=== PATIENT | male | born 1950 | race Caucasian/White ===

== ENCOUNTER 2019-03-13 01:09 | Emergency (ER) | payer MEDICARE ==
[2019-03-13] MEDS ORDERED: PROPOFOL 20 ML ONE (02:17)
[2019-03-13] MEDS ORDERED: Ondansetron PF 4 MG/2 ML Vial ONE (02:17)
[2019-03-13] MEDS ORDERED: Fentanyl 100 MCG/2 ML VIAL ONE ×4 (02:17→04:46)
[2019-03-13] MEDS ORDERED: PROPOFOL 40 ML ONE (04:44)
[2019-03-13] MEDS ORDERED: Midazolam HCl 5 mg/ml Vial ONE (04:46)
--- NOTE | 2019-03-13 05:58 | OP ---
DATE OF PROCEDURE: 03/13/2019 PREOPERATIVE DIAGNOSIS: Right total hip arthroplasty, posterior dislocation, recurrent. POSTOPERATIVE DIAGNOSIS: Right total hip arthroplasty, posterior dislocation, recurrent. PROCEDURE: Closed reduction of right total hip arthroplasty dislocation, posterior. ANESTHESIA: IV sedation with propofol. BLOOD LOSS: Zero. COMPLICATIONS: None. DRAINS: None. SPECIMEN: None. OUTCOME: Successful closed reduction of total hip arthroplasty, confirmed with x-ray. INDICATIONS: The patient is a 69-year-old gentleman who is status post right total hip arthroplasty with Dr. Jose Muniz in 2011. In 2015, the patient sustained a posterior hip dislocation that was treated with closed reduction. The patient was then remained stable and doing well until early this morning when he rolled over in bed and sustained an another posterior hip dislocation. An attempt was made at closed reduction by the emergency room physician; however, this proved to be unsuccessful. As such, Orthopedic consultation requested. Upon evaluation, he was found to have an obvious posterior hip dislocation with the leg shortened and held in internal rotation. Today, I discussed with the patient risks and benefits of a closed reduction. Due to the unavailability of operating room time, we decided to proceed with IV sedation with anesthesia in the emergency room and an attempt at reduction. Informed consent has been obtained. DESCRIPTION OF PROCEDURE: After the induction of IV sedation with propofol, the patient was positioned supine and then longitudinal traction was applied with the hip at 90 degrees of flexion with gentle longitudinal traction. The leg was brought out to full extension and a subtle clunk could be felt as it reduced. When the leg was then brought into full extension, there was found to be religious of leg lengths in the leg that fell into normal external rotation at the hip while lying supine. A single AP pelvis x-ray was then obtained that showed concentric reduction of this hip. PLAN: Today, I discussed with the patient and his that I would like him to follow up with Dr. Jose Muniz this week to inform him of the 2nd dislocation. He needs to avoid positions that place him at risk for redislocation such as internal rotation of the hip or adduction. They appear comfortable with this plan. He will be discharged home from the emergency room Job ID: [id number]
--- NOTE | 2019-03-13 09:00 | RAD ---
SINGLE VIEW RIGHT HIP: Date: 03/13/19 COMPARISON: 01/30/12 and 02/25/16. HISTORY: Prior history of hip dislocations. Right hip deformity. FINDINGS: Single view of the right hip shows dislocation of the right hip prosthesis. No fracture is seen. IMPRESSION: Dislocation of right hip prosthesis. POS: CET
--- NOTE | 2019-03-13 09:00 | RAD ---
SINGLE VIEW RIGHT HIP: Date: 03/13/19 COMPARISON: 03/13/19 at 0122 hours. HISTORY: Dislocated hip prosthesis. FINDINGS: Single view of the right hip shows persistent dislocation of the right hip prosthesis. IMPRESSION: Persistent right hip prosthesis dislocation. POS: CET
--- NOTE | 2019-03-13 09:01 | RAD ---
SINGLE VIEW RIGHT HIP: Date: 03/13/19 COMPARISON: 03/13/19 at 0243 hours. HISTORY: Dislocated hip prosthesis. FINDINGS: Single view of the right hip shows reduction of the previously seen dislocated right hip prosthesis. No fracture is seen. IMPRESSION: Reduction of prosthetic dislocation. POS: CET
== END 2019-03-13 06:27 | disposition home or self-care (01) ==
LOC: ERS 01:09
DX: S73.014A Posterior dislocation of right hip, initial encounter (principal); E78.5 Hyperlipidemia, unspecified; I10 Essential (primary) hypertension; I25.2 Old myocardial infarction; Z87.891 Personal history of nicotine dependence; Z79.82 Long term (current) use of aspirin; Z79.899 Other long term (current) drug therapy; X50.9XXA Other and unspecified overexertion or strenuous movements or postures, initial encounter
CPT/HCPCS: 94760; 96361; 96374; 96375; 96376; 99152; 99153; J2250; J2405; J2704; J3010

== ENCOUNTER 2019-08-12 10:17 | Emergency (ER) | payer MEDICARE ==
[2019-08-12 11:14] LABS: #Neutrophils 10.2 thou/uL (1.40-6.50); %Basophils 0.3 % (0.0-1.0); %Eosinophils 0.2 % (0.0-10.0); %Monocytes 8.1 % (0.0-10.0); %Neutrophils 83.4 % (42.0-75.0); Hemoglobin 14.7 g/dL (14.0-18.0); Mean Corpuscular HGB CONC 34.7 g/dL (32.0-36.0); Mean Corpuscular Hemoglobin 32.7 pg (27.0-31.0); Mean Corpuscular Volume 94.1 fL (78.0-98.0); Mean Platelet Volume 8.2 fL (7.4-10.4); Platelet Count 270 thou/uL (130-400); White Blood Cell (WBC) Count 12.2 thou/uL (4.8-10.8)
[2019-08-12 11:37] LABS: ALT (SGPT) 33 U/L (8-55); AST (SGOT) 22 U/L (5-34); Albumin 4.4 g/dL (3.4-4.8); Alkaline Phosphatase 85 U/L (40-110); Anion Gap 16 mmol/L (10-20); BUN (Urea Nitrogen) 17 mg/dL (8.4-25.7); Bilirubin, Total 2.1 mg/dL (0.2-1.2); Calc. Creatinine Clearance 0 mL/min (70-130); Calcium 9.5 mg/dL (7.8-10.44); Carbon Dioxide 25 mmol/L (23-31); Chloride 98 mmol/L (98-107); Estimated GFR-MDRD 76; Globulin 3.1 g/dL (2.4-3.5); Glucose 153 mg/dL (80-115); Lipase 14 U/L (8-78); Potassium 3.6 mmol/L (3.5-5.1); Protein, Total 7.5 g/dL (5.8-8.1); Sodium 135 mmol/L (136-145)
[2019-08-12] MEDS ORDERED: Ondansetron PF 4 MG/2 ML Vial ONE ×2 (12:00→12:52)
[2019-08-12] MEDS ORDERED: Morphine 4 MG/ML VIAL ONE (12:52)
--- NOTE | 2019-08-12 13:02 | CT ---
CT ABDOMEN AND PELVIS WITH IV CONTRAST 08/12/2019 CLINICAL INFORMATION: Nausea, vomiting, and diarrhea. Patient also reports abdominal cramping. COMPARISON: 02/05/2012 Technique: Multiple contiguous axial CT images are obtained through the abdomen and pelvis with IV contrast. Cor onal reformatted images are provided. FINDINGS: Lower Chest: Small hiatal hernia is visualized. Lung bases are clear. Vessels: Vascular calcifications are seen in the abdominal aorta and involving the iliac arteries. Abdomen: Portal vein:Patent Gallbladder: Within normal limits for CT imaging. Liver: within normal limits. Spleen: within normal limits. Pancreas: Approximately 12 mm low-density lesion is seen in the pancreatic head, but this is stable c ompared to prior study in 2012. Adrenals: within normal limits. Kidneys: Subcentimeter too small to characterize hypodense lesion midportion left kidney. Kidneys oth erwise have a normal CT appearance. The right kidney is rotated. Bowel: Small bowel is fluid-filled but normal in caliber. Appendix: Not visualized, no secondary signs to suggest appendicitis are seen. Peritoneum: No ascites or free air; no fluid collection. Mesentery and Retroperitoneum: No enlarged mesenteric or retroperitoneal lymph nodes. Abdominal Wall: Small fat-containing umbilical hernia is again seen. Pelvis: Reproductive Organs: No pelvic masses. Pelvis within normal limits. Bladder: Partially obscured due to streak artifact but otherwise grossly normal in appearance. Bones: Right total hip prosthesis is noted. Degenerative changes are seen in the spine which have pro gressed when compared to prior study. IMPRESSION: 1. No acute findings are seen in the abdomen or pelvis. 2. Stable subcentimeter hypodense lesion pancreatic head unchanged compared to study in 2012. 3. Fluid-filled loops of small bowel which are not dilated. This is overall nonspecific. Enteritis ca nnot be excluded based on this exam. 4. Small hiatal hernia.
[2019-08-12 13:39] LABS: Bacteria/HPF None Seen HPF (None Seen); Bilirubin Negative (Negative); Blood, Urine Negative (Negative); Clarity Clear (Clear); Glucose, Urine (Dipstick) Normal (Negative); Leukocyte Negative Leu/uL (Negative); Nitrite Negative (Negative); Protein, Urine (Dipstick) 50 mg/dL (Neg-Trace); Squamous Epithelial None Seen HPF (0-3); Urobilinogen Normal mg/dL (Less than 2); WBC/HPF 0-3 HPF (0-3)
== END 2019-08-12 13:50 | disposition home or self-care (01) ==
LOC: ERS 10:17
DX: K52.9 Noninfective gastroenteritis and colitis, unspecified (principal); E78.5 Hyperlipidemia, unspecified; I10 Essential (primary) hypertension; I25.2 Old myocardial infarction; Z95.5 Presence of coronary angioplasty implant and graft; Z87.891 Personal history of nicotine dependence; Z79.82 Long term (current) use of aspirin; Z79.899 Other long term (current) drug therapy
CPT/HCPCS: 36415; 74177; 80053; 81003; 81015; 83690; 84484; 85025; 93005; 96361; 96372; 96374; 96376; J0500; J2270; J2405

== ENCOUNTER 2019-08-28 10:13 | Outpatient (CLI) | payer MEDICARE, OTHER ==
--- NOTE | 2019-08-28 11:33 | RAD ---
XR Barium Swallow Esophagus HISTORY: Dysphagia COMPARISON: None. FINDINGS: Swallowing was grossly normal. There is unobstructed flow of contrast through the esophagus into the stomach. No ulcer, stricture, mass or diverticulum is seen. A small hiatal hernia is noted. Incidental note is made of a small diverticulum arising from the second portion of the duodenu m. IMPRESSION: 1. Small hiatal hernia 2. Small duodenal diverticulum.
== END 2019-08-28 10:14 | disposition home or self-care (01) ==
LOC: RAD 10:13
PROVIDERS: ATTEND Family Medicine
DX: R13.10 Dysphagia, unspecified (principal); K44.9 Diaphragmatic hernia without obstruction or gangrene; K57.10 Diverticulosis of small intestine without perforation or abscess without bleeding
CPT/HCPCS: 74220

== ENCOUNTER 2021-02-18 09:58 | Emergency (ER) | payer MEDICARE, OTHER ==
[2021-02-18] MEDS ORDERED: Ondansetron PF 4 MG/2 ML Vial ONE (10:41)
[2021-02-18 10:47] LABS: #Eosinphils 0.2 thou/uL (0.0-0.7); #Lymphocytes 1.1 thou/uL (1.20-3.40); #Monocytes 0.9 thou/uL (0.11-0.59); #Neutrophils 3.6 thou/uL (1.40-6.50); %Basophils 0.7 % (0.0-1.0); %Eosinophils 4.1 % (0.0-10.0); %Lymphocytes 18.7 % (21.0-51.0); %Monocytes 14.6 % (0.0-10.0); %Neutrophils 61.9 % (42.0-75.0); Mean Corpuscular HGB CONC 33.8 g/dL (32.0-36.0); Mean Corpuscular Hemoglobin 32.4 pg (27.0-31.0); Mean Platelet Volume 7.9 fL (7.4-10.4); Platelet Count 268 thou/uL (130-400); RBC Distribution Width 11.9 % (11.5-14.5); Red Blood Cell (RBC) Count 4.63 mill/uL (4.70-6.10); White Blood Cell (WBC) Count 5.8 thou/uL (4.8-10.8)
[2021-02-18 11:07] LABS: ALT (SGPT) 22 U/L (8-55); AST (SGOT) 14 U/L (5-34); Albumin 4.3 g/dL (3.4-4.8); Alkaline Phosphatase 78 U/L (40-110); Anion Gap 20 mmol/L (10-20); BUN (Urea Nitrogen) 17 mg/dL (8.4-25.7); Bilirubin, Total 1.6 mg/dL (0.2-1.2); CK (CPK) 46 U/L (30-200); Calc. Creatinine Clearance 0 mL/min (70-130); Calcium 9.3 mg/dL (7.8-10.44); Carbon Dioxide 14 mmol/L (23-31); Chloride 105 mmol/L (98-107); Globulin 3.2 g/dL (2.4-3.5); Glucose 114 mg/dL (83-110); Lipase 42 U/L (8-78); Potassium 3.8 mmol/L (3.5-5.1); Protein, Total 7.5 g/dL (5.8-8.1); Sodium 135 mmol/L (136-145)
== END 2021-02-18 12:15 | disposition home or self-care (01) ==
LOC: ERS 09:58
DX: E86.0 Dehydration (principal); R11.2 Nausea with vomiting, unspecified; R19.7 Diarrhea, unspecified; I10 Essential (primary) hypertension; I25.2 Old myocardial infarction; E78.5 Hyperlipidemia, unspecified; Z87.891 Personal history of nicotine dependence; Z79.82 Long term (current) use of aspirin; Z79.899 Other long term (current) drug therapy
CPT/HCPCS: 80053; 82550; 83690; 84484; 85025; 87324; 87328; 87329; 87449; 93005; 96374; J2405

== ENCOUNTER 2023-07-12 09:55 | Outpatient (CLI) | payer MEDICARE, OTHER | END 2023-07-12 09:56 | disposition home or self-care (01) | LOC: SCSRAD 09:55 | PROVIDERS: ATTEND Family Medicine | DX: M54.50 Low back pain, unspecified (principal); G89.29 Other chronic pain; M47.816 Spondylosis without myelopathy or radiculopathy, lumbar region; M51.36 Other intervertebral disc degeneration, lumbar region | CPT/HCPCS: 72100; 80053; 80061; G0103; 36415 ==

== ENCOUNTER 2025-07-15 08:34 | Outpatient (CLI) | payer MEDICARE, OTHER | END 2025-07-15 08:35 | disposition home or self-care (01) | LOC: BICRAD 08:34 | PROVIDERS: ATTEND Family Medicine | DX: M54.50 Low back pain, unspecified (principal); M47.816 Spondylosis without myelopathy or radiculopathy, lumbar region | CPT/HCPCS: 72100 ==